=== PATIENT | male | born 1985 | race Two or more races ===

== ENCOUNTER 2021-08-08 20:07 | Emergency (ER) | payer SELFPAY ==
[~2021-08-08] VITALS: Ht 167.6 cm; Wt 114.0 kg
[2021-08-08 20:14] VITALS: BP 116/82
== END 2021-08-08 22:25 | disposition left against medical advice (07) ==
LOC: ER 20:07
DX: Z53.21 Procedure and treatment not carried out due to patient leaving prior to being seen by health care provider (principal); I49.9 Cardiac arrhythmia, unspecified
CPT/HCPCS: 93005